=== PATIENT | male | born 1965 | race Caucasian/White ===

== ENCOUNTER 2019-10-09 14:56 | Observation (INO) ==
[2019-10-09] MEDS ORDERED: ASPIRIN PO ONE (15:09)
--- NOTE | 2019-10-09 15:26 | Diag Imaging Result Doc PS360 ---
CHEST-2 VIEWS - 10/09/2019 INDICATION: sob, cp COMPARISON: None FINDINGS: There is a small right pleural effusion. There is probably also small infiltrate in the right lung base. The left lung is clear. Heart size and pulmonary vascularity is normal. IMPRESSION: Right basilar infiltrate and small right pleural effusion. Correlate for possible pneumonia. Electronically signed by Manny Faust 10/09/2019 3:24 PM
[2019-10-09 15:33] LABS: BASO# 0.04 X1000 (0.0-0.2); BASO% 0.5 % (0.0-0.8); EOS# 0.31 X1000 (0.0-0.7); EOS% 3.5 % (0.0-10.0); HEMATOCRIT 49.3 % (42.0-52.0); HEMOGLOBIN 17.1 g/dL (14.0-18.0); IMM GRAN# 0.03 X1000 (0.0-0.04); IMM GRAN% 0.3 % (0.0-0.5); LYMPH# 3.07 X1000 (1.2-3.4); LYMPH% 35.1 % (20.5-51.1); MCH 32.1 PG (27-31); MCHC 34.7 g/dL (33-37); MCV 92.5 FL (81-99); MONO% 9.1 % (1.7-9.3); NEUT% 51.5 % (42.2-75.2); PLT 229 X1000 (130-400); RBC 5.33 XMIL (4.7-6.1); RDW 13.4 % (11.5-14.5); WBC 8.75 X1000 (4.8-10.8)
[2019-10-09 15:43] LABS: INR 0.91; PROTIME 12.3 Seconds (11.0-16.0); PTT 27.7 Seconds (22.3-41.8)
[2019-10-09 15:47] LABS: AGAP 14; ALB/GLOB RATIO 1.3; ALBUMIN 4.1 g/dL (3.5-5.0); ALKALINE PHOSPHATASE 114 U/L (32-122); BUN 12 mg/dL (8-22); CALCIUM 9.8 mg/dL (8.8-10.2); CHLORIDE 99 mmol/L (98-107); CK PROFILE 111 U/L (24-204); COSMO 276; CREATININE 1.2 mg/dL (0.7-1.2); ESTIMATED GFR > 60; GLUCOSE 108 mg/dL (70-104); GOT 21 U/L (10-34); GPT 20 U/L (10-44); POTASSIUM 3.8 mmol/L (3.5-5.1); SODIUM 138 mmol/L (136-145); TCO2 25 mmol/L (25-35); TOTAL BILIRUBIN 0.66 mg/dL (0.20-1.00); TOTAL PROTEIN 7.3 g/dL (6.3-8.3)
--- NOTE | 2019-10-09 15:58 | PROVIDER DOCUMENTATION ---
HPI-General Adult - General Chief Complaint: Chest Pain Stated Complaint: CHEST PAIN/LEFT ARM PAIN Time Seen by Provider: 10/09/19 15:45 Source: patient Allergies/Adverse Reactions: Patient Allergies Allergy/AdvReac Type Severity Reaction Status Date / Time No Known Allergies Allergy Verified 10/09/19 17:37 Home Medications: Home Medication List Medication Instructions Recorded Confirmed Last Taken Type LISINOpril [Prinivil] 20 mg PO DAILY 10/09/19 10/09/19 Unknown History - History of Present Illness -Gen Adult Nature of Presenting Problems: This is a 54yo male who presents with CC of upper abdomen and chest pain. The patient started to note upper abdominal pain last week, but then starting yesterday he noted tightness and pressure in his chest. The patient also noted tightness and numbness in his left arm. The patient denies exertional chest pain. The patient does reports some nausea and vomiting. The pt denies other pain or fever. Pain: chest and abdomen Provocation/Paliation: none Quality: ache and tightness, currently 4/10 Locations/Radiation: upper abdomen and chest pain radiating to the right chest Symptoms: left arm tightness, nausea, vomiting, and light headedness Onset/Timing: intermitent last week, with progressive symptoms starting yesterday Social: current smoker, hx of PE. Review of Systems - Adult - REVIEW OF SYSTEMS - ADULT Constitutional: reports: no symptoms reported. denies: fever Eyes: reports: no symptoms reported. denies: eye pain Ears, Nose, Mouth & Throat: reports: no symptoms reported. denies: throat pain Cardiovascular: reports: chest pain Respiratory: reports: shortness of breath Gastrointestinal: reports: abdominal pain Genitourinary: reports: no symptoms reported Musculoskeletal: reports: no symptoms reported. denies: back pain Integumentary: reports: no symptoms reported Neurological: reports: numbness (LEFT ARM). denies: headache/migraines Psychiatric: reports: no symptoms reported Endocrine: reports: no symptoms reported Hematologic/Lymphatic: reports: no symptoms reported, other (no bleedign) Allergic/Immunologic: reports: no symptoms reported, other (no swelling) Past History - Adult - PAST MEDICAL HISTORY-ADULT Review of Records: reports: Old Records Reviewed Endocrine/Immune: reports: Diabetes - PRIOR SURGERIES/PROCEDURES Surgical/Procedure History: reports: cholecystectomy - IMMUNIZATION STATUS Childhood Immunizations: See Nurse Assessment Flu Vaccine: See Nurse Assessment - FAMILY HISTORY Family History: other (CAD) - SOCIAL HISTORY Smoking: cigarettes (1ppd) Substance Use: none/never Alcohol Use Frequency: never Physical Exam-General - PHYSICAL EXAM-ADULT Initial Vital Signs Reviewed: Yes - CONSTITUTIONAL General Appearance: appears well, alert, no apparent distress - EYES Eyes: negative: conjuctival exudate, sclera injected, scleral icterus - HEAD, EARS, NOSE, MOUTH & THROAT HENMT: normocephalic/atraumatic, pharynx normal - NECK Neck: non-tender, supple - RESPIRATORY Respiratory: no respiratory distress, decreased breath sounds (RLL) - CARDIOVASCULAR Cardiovascular: regular rate, rhythm, no edema - GASTROINTESTINAL (ABDOMEN) Abdominal Exam: soft, tenderness (mild epigastric tenderness) - MUSCULOSKELETAL Extremity: non-tender. negative: deformity, erythema, swelling - SKIN Integumentary: normal color, warm/dry - NEUROLOGIC Neurologic: grossly normal - PSYCHIATRIC Psych/Mental Status: normal mood/affect, normal thought content, normal thought process Progress - PLAN OF CARE/RESULTS Progress/Plan/Lab Results: Vital Signs - 8 hr 10/09/19 15:05 Temperature 97.7 F Pulse Rate 80 Respiratory Rate 22 Blood Pressure 139/90 O2 Sat by Pulse Oximetry 98 Laboratory Results - last 24 hr 10/09/19 10/09/19 10/09/19 15:13 15:13 15:13 WBC 8.75 RBC 5.33 Hgb 17.1 Hct 49.3 MCV 92.5 MCH 32.1 H MCHC 34.7 RDW Std Deviation 13.4 Plt Count 229 MPV 10.0 Immature Gran % (Auto) 0.3 Neut % (Auto) 51.5 Lymph % (Auto) 35.1 Coleman % (Auto) 9.1 Eos % (Auto) 3.5 Baso % (Auto) 0.5 Immature Gran # (Auto) 0.03 Neut # (Auto) 4.50 Lymph # (Auto) 3.07 Coleman # (Auto) 0.80 H Eos # (Auto) 0.31 Baso # (Auto) 0.04 PT INR PTT (Actin FS) Sodium 138 Potassium 3.8 Chloride 99 Carbon Dioxide 25 Anion Gap 14 BUN 12 Creatinine 1.2 Estimated GFR/1.73 m2 > 60 BUN/Creatinine Ratio 10 Glucose 108 H Calculated Osmolality 276 Calcium 9.8 Total Bilirubin 0.66 AST 21 ALT 20 Alkaline Phosphatase 114 Creatine Kinase 111 Troponin T High Sens < 6 Total Protein 7.3 Albumin 4.1 Globulin 3.2 Albumin/Globulin Ratio 1.3 10/09/19 15:13 WBC RBC Hgb Hct MCV MCH MCHC RDW Std Deviation Plt Count MPV Immature Gran % (Auto) Neut % (Auto) Lymph % (Auto) Coleman % (Auto) Eos % (Auto) Baso % (Auto) Immature Gran # (Auto) Neut # (Auto) Lymph # (Auto) Coleman # (Auto) Eos # (Auto) Baso # (Auto) PT 12.3 INR 0.91 PTT (Actin FS) 27.7 Sodium Potassium Chloride Carbon Dioxide Anion Gap BUN Creatinine Estimated GFR/1.73 m2 BUN/Creatinine Ratio Glucose Calculated Osmolality Calcium Total Bilirubin AST ALT Alkaline Phosphatase Creatine Kinase Troponin T High Sens Total Protein Albumin Globulin Albumin/Globulin Ratio Orders Category Date Time Status Cardiac Monitoring DIRECTED Care 10/09/19 15:09 Active Oxygen Therapy- ED Nursing DIRECTED Care 10/09/19 15:09 Active Saline Loc NOW Care 10/09/19 15:09 Active CHEST-2 VIEWS [RAD] Stat Exams 10/09/19 15:09 Completed CBC WITH ELECTRONIC DIFF [HEME] Stat Lab 10/09/19 15:13 Completed CK PROFILE [SP CHEM] Stat Lab 10/09/19 15:13 Completed COMPREHENSIVE METABOLIC PANEL [CHEM] Stat Lab 10/09/19 15:13 Completed PRO B-NATRIURETIC PEPTIDE Stat Lab 10/09/19 15:13 Received PROTIME WITH INR [COAG] Stat Lab 10/09/19 15:13 Completed PTT [COAG] Stat Lab 10/09/19 15:13 Completed TROPONIN T HIGH SENSITIVITY Stat Lab 10/09/19 15:13 Completed Aspirin Med 10/09/19 15:09 Discontinued 325 mg PO NOW ONE CP/SOB/Palp >45 yrs of Age Stat Oth 10/09/19 15:09 Ordered Result Diagrams: 10/09/19 15:13 10/09/19 15:13 - REASSESSMENT Reassessment #1 Status: other (Pt still with mild left chest tightness. Pt is higher risk for CAD with obesity, DM, smoker, and family hx of disease. Discussed options of staying for stress testing vs discharge with oupt stress testing. Pt would like to stay for stress testing. Discussed with the hosptialist team who has accepted the patient.) - EKG 1 Time of EKG reading by physician:: 14:59 EKG Read and Signed by:: Carmine Giordano EKG Interpretation (*Must complete 3 of following elements*): Abnormal Rate: 79 Rhythm: sinus [place]: normal QRS: normal [place] Interval: normal ST Wave: non-specific ST changes Prior EKG Comparison: no prior EKG Departure - Departure Date of Disposition Decision: 10/09/19 Time of Disposition Decision: 19:12 DIAGNOSIS: Chest pain Qualifiers: Chest pain type: unspecified Qualified Code(s): R07.9 - Chest pain, unspecified Disposition: ADMITTED INPATIENT 09 Certified Medical Emergency: Emergent Condition: Fair Referrals and Follow-Ups: Lashell Gonzales MD [Primary Care Provider] - Discharge Education: Steps to Quit Smoking, [id number] - Critical Care Note This patient required my direct & personal management of CC.: No Attestation - Physician/ TJ Attestation Patient care was provided by Advanced Practice Provider:: No The physician spent face to face time with patient:: Yes Advanced Practice Provider documentation review:: Supervising physician onsite and consulted in the evaluation and care of this patient. The physician did have a face to face encounter with the patient. - HEART Score HEART Score: History: Moderately Suspicious HEART Score: ECG: Non-Specific Repolarization Disturbance/LBBB/PM HEART Score: Age: 45-65 Years HEART Score: Risk Factors for Atherosclerotic Disease: > or = 3 Risk Factors or History of Atherosclerotic Disease HEART Score: Troponin: < or = Normal Limit Total HEART Score:: 5
--- NOTE | 2019-10-09 18:50 | Diag Imaging Result Doc PS360 ---
CT ANGIOGRM PULMONARY ARTERIES - 10/09/2019 INDICATION: Chest pain, hx of PE TECHNIQUE: Axial CT images were obtained after administering intravenous contrast. Coronal MIP images were generated. COMPARISON: Chest x-ray from earlier FINDINGS: There is no pulmonary embolism. Heart size is normal. There is fatty change of the liver. There are cholecystectomy clips. Otherwise upper abdominal images appear normal. There is a trace right pleural effusion. There are some mild hazy infiltrate in the right lung base, nonspecific. Airways are clear. Bones are intact and well mineralized. IMPRESSION: Negative for pulmonary embolism. Trace right pleural effusion. Small nonspecific infiltrate in the right lung base. Mild fatty liver. This exam was performed using automated exposure control, adjustment of mA or kV according to patient size, and/or use of iterative reconstruction technique Electronically signed by Manny Faust 10/09/2019 6:48 PM
[2019-10-09] MEDS ORDERED: NITROGLYCERIN TOP ONE (19:39)
[2019-10-09] MEDS ORDERED: NS 1,000 ML IV SCH (21:30)
[2019-10-09] MEDS: NITROGLYCERIN TOP SCH (21:30)
[2019-10-10] MEDS: NITROGLYCERIN TOP SCH ×2 (04:08→10:06)
[2019-10-10] MEDS ORDERED: NICODERM PATCH TD PRN (04:39)
[2019-10-10] MEDS ORDERED: LEVAQUIN 750 MG/D5W 750 MG/150 ML IVPB IV SCH (04:45)
[2019-10-10] MEDS: HUMALOG SUBQ SCH ×3 (06:04→15:43)
--- NOTE | 2019-10-10 06:04 | EKG Report ---
Test Performed on : 10/10/2019 05:54:22 AM Test Reason : chest pain Blood Pressure : / mmHG Vent. Rate : 069 BPM Atrial Rate : 069 BPM P-R Int : 140 ms QRS Dur : 080 ms QT Int : 402 ms P-R-T Axes : 025 038 020 degrees QTc Int : 430 ms Normal sinus rhythm. Normal ECG When compared with ECG of 09-OCT-2019 14:59, (Unconfirmed) No significant change was found Confirmed by Esme Espinoza MD ([id number]) on 10/10/2019 4:45:06 PM
--- NOTE | 2019-10-10 06:45 | HISTORY AND PHYSICAL ---
CHIEF COMPLAINT: Left-sided chest pain noted prior to admission. HISTORY OF PRESENT ILLNESS: Mr. Rajesh Nguyễn is a 54-year-old male who has a history of diabetes mellitus, hypertension, and a previous history of PE. He presents to the hospital because of left-sided chest pain which was noted prior to coming to the hospital. He describes the pain as dull and on a scale of 0 to 10, it is 7/10. It is intermittent and radiates to the left upper extremity. The patient has associated palpitations, diaphoresis as well as shortness of breath. At the time of presentation, troponin level was 6 and EKG is currently pending. Chest x-ray shows evidence of a right basilar infiltrate and a small right pleural effusion. Pulmonary angiogram shows a trace right pleural effusion as well as a small nonspecific infiltrate in the right lung base along with a fatty liver. The patient now admitted to the floor for further management. PAST MEDICAL HISTORY: Diabetes mellitus, hypertension, history of pulmonary thromboembolism. SOCIAL HISTORY: He smokes cigarettes. Denies any alcohol or drug use. ALLERGIES: No known medication allergies. FAMILY HISTORY: Positive for heart disease. MEDICATIONS: Include the following. Lisinopril 20 mg once a day and the patient also takes metformin. PAST SURGICAL HISTORY: He has had a cholecystectomy in the past. REVIEW OF SYSTEMS: Constitutional: No fever. Central nervous system: No headaches. Eyes: No blurred vision. ENT: No sinus problem. Respiratory: He has cough. Gastrointestinal: Has nausea, vomiting along with abdominal pain. Genitourinary: No dysuria. Musculoskeletal: No joint pains. Endocrinology: Has diabetes but no thyroid disease. Psychiatry: No anxiety or depression. Hematology: No bleeding problems. Dermatology: No skin lesions. PHYSICAL EXAMINATION: VITAL SIGNS: Temperature 97.7 degrees, pulse is 80, respirations 22, blood pressure is 139/90, oxygen saturation 98%. HEENT: Atraumatic, normocephalic. Pupils equal, poorly reactive to light. No oral lesions noted. NECK: No lymphadenopathy or thyromegaly. CARDIOVASCULAR: S1, S2. No gallops or murmurs head. RESPIRATORY: Has evidence of good air entry bilaterally. ABDOMEN: Soft, obese, nontender. No masses felt. EXTREMITIES: No evidence of edema. CENTRAL NERVOUS SYSTEM: No obvious focal deficit noted. LABORATORY STUDIES: WBC 8.75, hematocrit 49.3 with a platelet count of 229,000. INR is 0.91. Sodium is 138, potassium 3.8, chloride is 99, bicarb 25, BUN is 12, creatinine is 1.2, glucose 108. Troponin is 6. IMAGING: Chest x-ray shows a right basilar infiltrate with small right pleural effusion. CTA of the chest shows no evidence of PE but shows evidence of a right pleural effusion and nonspecific infiltrate in the right lung base. ASSESSMENT AND PLAN: 1. Atypical chest pain. We will place patient on telemetry. Follow up on serial cardiac enzymes. Place patient on aspirin, beta derik, nitroglycerin p.r.n. for chest pain. Request 2D echo of the heart. Consult with Cardiology for cardiac risk assessment. 2. Probable pneumonia. We will obtain sputum and blood cultures and place patient on empiric antibiotics. 3. History of pulmonary thromboembolism. Aware. CTA of the chest negative for pulmonary embolism. 4. Diabetes mellitus. Sliding scale insulin, blood sugar monitoring. Check hemoglobin a A1c and recommend a diabetic diet. 5. Hypertension. Optimize blood pressure control. 6. Tobacco use history. Nicotine patch. 7. Deep vein thrombosis prophylaxis. Lovenox. 8. Gastrointestinal prophylaxis. Proton pump inhibitor. cc: John Blanc MD MTDD
[2019-10-10] MEDS ORDERED: PRILOSEC PO SCH (07:00)
--- NOTE | 2019-10-10 07:01 | EKG Report ---
Test Performed on : 10/09/2019 2:59:15 PM Test Reason : ED. NO EKG ORDER FOR MUSE Blood Pressure : / mmHG Vent. Rate : 079 BPM Atrial Rate : 079 BPM P-R Int : 132 ms QRS Dur : 084 ms QT Int : 370 ms P-R-T Axes : 023 022 013 degrees QTc Int : 424 ms Normal sinus rhythm. Normal ECG When compared with ECG of 28-JUN-2010 13:00, No significant change was found Unconfirmed Result
[2019-10-10 08:39] LABS: CHOLESTEROL 149 mg/dL (0-200); HDL 20 mg/dL (35-55); LDL 93 mg/dL; TRIGLYCERIDES 178 mg/dL (39-160); VLDL 36 mg/dL
[2019-10-10 08:40] LABS: HEMOGLOBIN A1C 6.4 % (4.8-6.0)
[2019-10-10] MEDS ORDERED: PRINIVIL PO SCH (09:00)
[2019-10-10] MEDS ORDERED: LOVENOX SUBQ SCH (09:00)
[2019-10-10] MEDS ORDERED: COREG PO SCH (09:00)
--- NOTE | 2019-10-10 12:37 | CARDIOLOGY CONSULTATION ---
DATE: 10/10/2019 REASON FOR CONSULTATION: Cardiology was consulted for chest pain. HISTORY OF PRESENT ILLNESS: Mr. Nguyễn is a 54-year-old gentleman with history of hypertension, diabetes, pulmonary embolism in the past. Came to the emergency room with left- sided chest pain which he describes as cramping in addition to radiating to the left arm which had initial numbness and then cramping sensation as well. At the time of my examination, the patient was pain-free. Electrocardiogram did not reveal any ST-T changes to suggest ischemia. Cardiac enzymes were negative. He was recently diagnosed to have diabetes, was started on metformin. However, with the metformin he has been having cramping in his abdomen and which had significantly increased. As a result he had stopped his metformin. He has a strong family history of coronary artery disease. His father had coronary artery disease in his 40s, secondary to cardiac issues in his mid REVIEW OF SYSTEMS: Fourteen point review of system was done. GI System: As above. Respiratory System: There is no history of cough, expectoration, hemoptysis. Constitutional: There is no history of fevers or chills. Endocrine system: Stable. PAST MEDICAL HISTORY: 1. Recent diagnosis of diabetes. 2. Hypertension. 3. Pulmonary embolism secondary to fracture of his legs in the past. 4. He is a smoker, smokes about a pack of cigarettes a day. FAMILY HISTORY: Positive for coronary artery disease. Father had coronary artery disease at the age of 49. PHYSICAL EXAMINATION: Vital signs: Blood pressure was 139/90. Cardiovascular System: Normal jugular venous pressure. There is no thyromegaly. No carotid bruit. First and 2nd sounds were heard. There is no S3, S4 gallop. Respiratory System: Normal air entry. There are no crepitations or rhonchi. Abdomen: Soft, nontender. There was no guarding or rigidity. Bowel sounds were heard. Central nervous system: Alert and oriented. Was moving all 4 extremities. Extremities: Revealed no pedal edema. HEENT: Atraumatic, normocephalic. Pupils were equal and reacting to light. ASSESSMENT AND PLAN: 1. Mr. Rajesh Nguyễn is a 54-year-old gentleman with history of hypertension, diabetes, history of pulmonary embolism in the past, comes in with complaints of squeezing chest discomfort in his left side associated with radiation to the left arm. He has been ruled out for myocardial infarction by cardiac enzymes. We will get an echocardiogram to assess cardiac and valvular function. We will set him up to undergo a Cardiolite stress test to rule out ischemia. 2. He has history of pulmonary embolism in the past. A CT scan was done which was negative for PE. 3. His current medications include for hypertension, continue with the lisinopril and he has been started on Coreg. I have not made any changes. 4. History of gastroesophageal reflux disease more suggestive of cramping sensation secondary to metformin. Diabetes medication changes as planned. 5. He is a smoker. He is on nicotine patch. I have not made any changes. Thank you for the consult. We will follow hospital course. cc: Ced Razo MD
--- NOTE | 2019-10-10 13:11 | ECHO REPORT ---
ORDER DATE: 10/09/2019 INDICATION: Chest pain. FINDINGS: 1. The right atrium appears normal in size. 2. Trace tricuspid regurgitation. RV systolic pressure unable to be assessed. 3. Normal RV size and systolic function. 4. No significant pulmonic insufficiency. 5. Severe left atrial enlargement with a volume index of 41. 6. No mitral valve prolapse. Mild mitral regurgitation. No mitral stenosis. 7. Normal LV size, end-diastolic dimension of 4.1 cm. Mild left ventricular hypertrophy with interventricular septal wall thickness of 1.3 cm. Normal LV systolic function. Estimated ejection fraction of 55% to 60% percent with normal wall motion. 8. Aortic valve opens well. It is trileaflet. No evidence of stenosis or insufficiency. 9. Aorta appears normal in visualized segments. 10. No pericardial effusion seen. 11. Normal diastolic function. 12. IVC not visualized. cc: MD John Bernal MD
[2019-10-10] MEDS ORDERED: CARAFATE LIQUID PO SCH (14:00)
[2019-10-10 15:44] VITALS: BP 122/66
--- NOTE | 2019-10-10 15:49 | Diag Imaging Result Document ---
PROCEDURE NAME: MYOCARDIAL PERF SCAN, STR/REST - 10/10/2019 INDICATION: Chest pain. PROCEDURES PERFORMED: 1. Kasi protocol stress. 2. One-day stress rest myocardial perfusion imaging (rest dose 15.3 mCi, stress dose 46.1 mCi). KASI PROTOCOL STRESS RESULTS: 1. Baseline EKG shows sinus rhythm, nonspecific ST-T changes. 2. Patient exercised for a total of 7 minutes 15 seconds, achieving peak heart rate of 146 which was 86% of age predicted max. He achieved 8.9 METS and early stage 3 of the Kasi protocol. Exercise capacity was reduced at only 80% of age and sex predicted exercise capacity. 3. Appropriate blood pressure response to exercise. 4. Test was terminated due to fatigue. 5. No anginal complaints occurred during the course of study. 6. No ischemic related EKG changes or significant arrhythmias occurred during the course of the study. PERFUSION IMAGING RESULTS: 1. No evidence of abnormal extracardiac uptake. 2. TID ratio is 0.90. 3. Perfusion imaging demonstrates very mild inferior soft tissue attenuation in the base of the inferior wall. This is likely soft tissue attenuation artifact. Wall motion is intact in the area. There is no evidence of ischemic changes. This would represent a low risk study. 4. Normal ejection fraction 82%. The end-diastolic volume is 96, end systolic volume 17. Normal wall motion is noted. cc: MD Aruna Bernal MD
--- NOTE | 2019-10-11 01:53 | DISCHARGE SUMMARY ---
ADMISSION DATE: 10/09/2019 DISCHARGE DATE: 10/10/2019 FINAL DISCHARGE DIAGNOSES: 1. Atypical chest pain. 2. Suspected reflux disease. 3. Morbid obesity. 4. Hypertension. 5. Diabetes mellitus type 2. 6. Tobacco dependence. 7. Right lower lobe pneumonia. CONSULTATIONS: Cardiology consultation with Dr. Razo. IMAGIN. Portable chest x-ray performed on 10/09/2019, which revealed a right basilar infiltrate. 2. Pulmonary arteriogram performed on 10/09/2019, which revealed an infiltrate in the right lung base. Fatty liver. 3. Myocardial perfusion scan performed on 10/10/2019, which revealed no ischemic related changes. HOSPITAL COURSE: Mr. Nguyễn is a 54-year-old male with a history of hypertension, diabetes, morbid obesity, and tobacco dependence, who presented to the ER with a chief complaint of chest pain. The patient was admitted to the hospitalist service. An EKG was done that revealed normal sinus rhythm with no significant changes. The patient's cardiac enzymes were also noted to be negative. Cardiology was consulted for further evaluation. A myocardial perfusion scan was performed on 10/10/2019, which revealed no evidence of ischemia. The patient did also complain of epigastric pain and he states that he is scheduled to see a digital sales planner in the next week in [place]. The patient had no further chest pain while hospitalized and was ultimately cleared for discharge on 10/10/2019. The patient was started on IV Levaquin in the hospital for the pneumonia that was seen on both the pulmonary arteriogram and chest x-ray. The patient was also advised strongly to quit smoking. DISCHARGE MEDICATIONS: 1. Aspirin 81 mg p.o. daily. 2. Protonix 40 mg p.o. daily. 3. Coreg 3.125 mg oral twice a day. 4. Augmentin 875/125 one tab oral twice a day x5 days. 5. Probiotic 1 tab oral daily. 6. Lisinopril 20 mg p.o. daily. 7. Metformin 500 mg oral daily. 8. Chantix use as directed. DISCHARGE DIET: 1800 ADA diet low-sodium diet. ACTIVITY: As tolerated. FOLLOWUP INSTRUCTIONS: The patient will need to follow up with Dr. Razo in 1 month. The patient will need to follow up with Dr. Lashell Gonzales in one week. cc: MD Lashell Chambersw
== END 2019-10-10 16:35 | disposition home or self-care (01) ==
LOC: ED 14:56 → 3N 23:46 → INTOOBSV 23:46 → SUATTDRO 23:46
PROVIDERS: ATTEND Internal Medicine